=== PATIENT | female | born 1990 | race African-American/Black ===

== ENCOUNTER 2017-06-24 20:36 | Emergency (ER) | payer MEDICAID, OTHER ==
[~2017-06-24] VITALS: Ht 154.9 cm; Wt 54.4 kg
[2017-06-24 21:00] VITALS: BP 135/94
[2017-06-24 23:52] LABS: Urine RBC None Seen /hpf (0 - 4)
[2017-06-24 23:59] LABS: Urine Bilirubin Negative (Negative); Urine Blood Negative /uL (Negative); Urine Color Yellow (Yellow); Urine Glucose Normal (Normal); Urine Ketone Negative (Negative); Urine Mucus FEW (None Seen); Urine Nitrite Negative (Negative); Urine Squamous Epithelial Cell FEW /hpf (<5); Urine Urobilinogen Normal (Negative)
[2017-06-25] MEDS ORDERED: ONDANSETRON ODT 4 MG TAB PO ONE (00:45)
[2017-06-25] MEDS ORDERED: IBUPROFEN 600 MG TAB PO ONE (01:45)
== END 2017-06-25 02:33 | disposition home or self-care (01) ==
LOC: ER 20:36
DX: S16.1XXA Strain of muscle, fascia and tendon at neck level, initial encounter (principal); S00.93XA Contusion of unspecified part of head, initial encounter; F17.210 Nicotine dependence, cigarettes, uncomplicated; Y04.2XXA Assault by strike against or bumped into by another person, initial encounter; Y93.89 Activity, other specified; Y99.8 Other external cause status; Y92.89 Other specified places as the place of occurrence of the external cause
CPT/HCPCS: 70450; 81001; 81025; 99285; Q0162